=== PATIENT | male | born 1995 | race African-American/Black ===

== ENCOUNTER 2017-03-09 21:09 | Emergency (ER) | payer OTHER ==
[~2017-03-09] VITALS: Ht 182.9 cm; Wt 72.6 kg
[~2017-03-09 21:09] MED LIST: CIPROFLOXACIN500 MG PO; CYCLOBENZAPRINE10 MG PO; METRONIDAZOLE500 MG PO; MOTRIN IB200 MG PO; NAPROXEN500 MG PO; NORCO 5-325 TA1 EACH PO
[2017-03-09] MEDS ORDERED: ZOFRAN ODT4 MG PO (23:04)
== END 2017-03-09 23:18 | disposition home or self-care (01) ==
LOC: ED 21:09
DX: R11.2 Nausea with vomiting, unspecified (principal); J45.909 Unspecified asthma, uncomplicated; Z90.49 Acquired absence of other specified parts of digestive tract; Z90.89 Acquired absence of other organs
CPT/HCPCS: 80053; 81001; 85025; 96361; 96374; 96375; 99283; J2405; J2550; J7030; J7040

== ENCOUNTER 2017-10-22 05:45 | Day surgery (SDC) | payer OTHER ==
[~2017-10-22] VITALS: Ht 182.9 cm; Wt 75.0 kg
[~2017-10-22 05:45] MED LIST changes: +ULTRAM50 MG PO; +ZOFRAN ODT4 MG PO
[2017-10-22] MEDS ORDERED: NORCO 7.5-3251 EACH PO (09:56)
--- NOTE | 2017-10-31 07:09 | OR ---
[facility] [address], [place] [address] Signed DATE OF OPERATION: 10/22/2017 SURGEON: Patrick Calvillo MD PREOPERATIVE DIAGNOSIS: Acute ulnar collateral ligament rupture, right elbow, with flexor origin rupture, right elbow. POSTOPERATIVE DIAGNOSIS: Acute ulnar collateral ligament rupture, right elbow, with flexor origin rupture, right elbow. PROCEDURE: Repair of ulnar collateral ligament, right elbow. Repair of flexor origin, right elbow. ANESTHESIA: General. SPECIMENS AND COMPLICATIONS: There were no specimens or complications. TOURNIQUET TIME: About 50 minutes. WHAT WAS DONE: The patient was taken to the operating room. After anesthesia was induced and airway secured, the patient was positioned, prepped and draped in the routine sterile fashion. A curvilinear posteromedial incision was made just behind the medial epicondyle. Skin was divided sharply. Subcutaneous tissue was bluntly spread. The ulnar nerve was identified in the cubital tunnel and gently released. We did pass a small vessel loop around it and then were able to gently mobilized the ulnar nerve proximally and distally until it could be retracted out of the way. We then elevated what was left of a rather shredded origin of the ulnar collateral ligament and scarified the underlying bone. A single 3.0 suture anchor was then drilled into the UCL insertion site and used to repair the UCL back to bone. We then used a 15-blade and a small rongeur to scarify the medial epicondylar area and again placed another 3.0 mm suture tack and again used the suture to reattached the common flexor origin. We then reinforced this with interrupted peripheral sutures of 2-0 FiberWire. We then replaced the ulnar nerve in the cubital tunnel and irrigated the wound. Routine wound closure was accomplished and a sterile dressing Electronically Signed By: PATRICK CALVILLO MD 10/31/17 0709 PATIENT NAME: KYLE ASTORGA OPERATIVE REPORT DATE OF : 89 REPORT #: [id number] PHYSICIAN: PATRICK CALVILLO MD PCP: OLIVER ESCALANTE DO REPORT IS CONFIDENTIAL AND NOT TO BE RELEASED WITHOUT AUTHORIZATION [facility] [address] [place] [id number] Signed applied. The patient was placed in a splint, awakened, taken to the recovery room and arrived in stable condition. Counts were correct and antibiotic protocols were followed. Patrick Calvillo MD WFB/MODL /[id number] Electronically Signed By: PATRICK CALVILLO MD 10/31/17 0709 PATIENT NAME: KYLE ASTORGA ELINOR OPERATIVE REPORT DATE OF : [birth year] REPORT #: [id number] PHYSICIAN: PATRICK CALVILLO MD PCP: OLIVER ESCALANTE DO REPORT IS CONFIDENTIAL AND NOT TO BE RELEASED WITHOUT AUTHORIZATION
== END 2017-10-22 11:30 | disposition home or self-care (01) ==
LOC: OPS 05:45 → DS 05:45 → OPS 06:45
PROVIDERS: Orthopaedic Surgery
PROC: 0LQ30ZZ Repair Right Upper Arm Tendon, Open Approach (ICD-10-PCS; 2017-10-22)
PROC: 0MQ30ZZ Repair Right Elbow Bursa and Ligament, Open Approach (ICD-10-PCS; principal; 2017-10-22 06:45)
DX: S53.441A Ulnar collateral ligament sprain of right elbow, initial encounter (principal); S56.211A Strain of other flexor muscle, fascia and tendon at forearm level, right arm, initial encounter; J45.909 Unspecified asthma, uncomplicated; F17.200 Nicotine dependence, unspecified, uncomplicated
CPT/HCPCS: 01810; 64415; 64417; 76942; C1713; J0690; J1100; J2250; J2405; J2704; J2765; J2795; J3010; J7120

== ENCOUNTER 2018-01-24 20:54 | Emergency (ER) | payer OTHER ==
[~2018-01-24] VITALS: Ht 182.9 cm; Wt 75.0 kg
[~2018-01-24 20:54] MED LIST changes: +NORCO 7.5-3251 EACH PO
[2018-01-24] MEDS ORDERED: KETOROLAC TROME10 MG PO (21:44)
== END 2018-01-24 22:09 | disposition home or self-care (01) ==
LOC: ED 20:54
DX: S83.91XA Sprain of unspecified site of right knee, initial encounter (principal); J45.909 Unspecified asthma, uncomplicated; X58.XXXA Exposure to other specified factors, initial encounter; Y92.89 Other specified places as the place of occurrence of the external cause
CPT/HCPCS: 73560; 99283

== ENCOUNTER 2019-08-19 16:40 | Emergency (ER) | payer OTHER ==
[~2019-08-19] VITALS: Ht 182.9 cm; Wt 72.7 kg
--- OUTSIDE RECORDS SUMMARY | ~2019-08-19 | XMS | Encounter Summary ---
Demographics + + + | Address | [address] | | | [place] [address] | + + + | Home Phone | | + + + | Preferred Language | Unknown | + + + | Marital Status | Single | + + + | Pentecostal Affiliation | 1041 | + + + | Race | Unknown | + + + | Ethnic Group | Unknown | + + + Author + + + | Author | [facility] | | | and [place] | + + + | Organization | [facility] | | | and [place] | + + + | Address | Unknown | + + + | Phone | Unavailable | + + + Support + + +---------+ + | Name | Relationship | Address | Phone | + + +---------+ + | Ginette Betancur | ECON | Unknown | | + + +---------+ + | Kathya Wayneyston | ECON | Unknown | | + + +---------+ + Care Team Providers + +------+ + | Care Maritime Engineer Name | Role | Phone | + +------+ + | Samuel Ghosh DO | PCP | | + +------+ + Reason for Visit + + + | Reason | Comments | + + + | Knee Pain | | + + + Encounter Details +--------+ + + + + | Date | Type | Department | Care Team | Description | +--------+ + + + + | 01/30/ | Emergency | [facility] | Naga Redmond, | Acute lateral | | 2018 | | [facility] | MD [address] | meniscus tear of | | | | CENTER [address] | [place] | right knee, initial | | | | [place] | [address] | encounter (Primary | | | | [phone] | | Dx) | | | | [phone] | | | +--------+ + + + + Social History + +-------+ +--------+------+ | Tobacco Use | Types | Packs/Day | Years | Date | | | | | Used | | + +-------+ +--------+------+ | Never Assessed | | | | | + +-------+ +--------+------+ + + + | Sex Assigned at | Date Recorded | | | | + + + | Not on file | | + + + + + + + | Job Start Date | Occupation | Industry | + + + + | Not on file | Not on file | Not on file | + + + + + + + + | Travel History | Travel Start | Travel End | + + + + + + | No recent travel history available. | + + documented as of this encounter Last Filed Vital Signs + + + + + | Vital Sign | Reading | Time Taken | Comments | + + + + + | Blood Pressure | 134/84 | 01/30/2018 1:38 AM | | | | | PDT | | + + + + + | Pulse | 86 | 01/30/2018 1:38 AM | | | | | PDT | | + + + + + | Temperature | 37.2 C (99 F) | 01/29/2018 10:43 PM | | | | | PDT | | + + + + + | Respiratory Rate | 14 | 01/30/2018 1:38 AM | | | | | PDT | | + + + + + | Oxygen Saturation | 97% | 01/30/2018 1:38 AM | | | | | PDT | | + + + + + | Inhaled Oxygen | - | - | | | Concentration | | | | + + + + + | Weight | 72.6 kg (160 lb) | 01/29/2018 10:43 PM | | | | | PDT | | + + + + + | Height | - | - | | + + + + + | Body Mass Index | - | - | | + + + + + documented in this encounter Discharge Instructions Instructions Naga Redmond MD - 01/30/2018Take medication as needed for pain Use crutches and immobilizer at all times except changing close or bathing Return if new concerning symptoms AttachmentsThe following attachments cannot be sent through Care Everywhere.Meniscal Tears, Understanding (Wolof)documented in this encounter Plan of Treatment Not on filedocumented as of this encounter Procedures + +--------+ + + + | Procedure Name | Priori | Date/Time | Associated Diagnosis | Comments | | | ty | | | | + +--------+ + + + | XR KNEE RIGHT 1 - 2 | Routin | 01/30/2018 | | Results for this | | VW | e | 1:37 AM | | procedure are in the | | | | PDT | | results section. | + +--------+ + + + documented in this encounter Results XR Knee Right 1 - 2 Vw (01/30/2018 1:37 AM PDT) + + | Specimen | + + | | + + + + + | Narrative | Performed At | + + + | TWO VIEWS RIGHT KNEE 01/30/2018 1:37 AM CLINICAL HISTORY: Locked | [facility] | | in, pain COMPARISON: None available FINDINGS: The bones are | | | well-mineralized and well aligned. No fracture or subluxation is | | | visible. Joint compartments appear maintained. No conclusive knee | | | effusion or other soft tissue abnormality is visible. IMPRESSION | | | - 1. UNREMARKABLE RADIOGRAPHIC APPEARANCE OF THE RIGHT KNEE. | | | Dictated and Signed by: Da Mckeon MD Electronically signed: | | | 01/30/2018 7:49 AM | | + + + + + | Procedure Note | + + | Fredy Craft Results In - 01/30/2018 7:52 AM PDT TWO VIEWS RIGHT KNEE 01/30/2018 1:37 AM | | | | CLINICAL HISTORY: Locked in, pain | | | | COMPARISON: None available | | | | FINDINGS: The bones are well-mineralized and well aligned. No fracture or | | subluxation is visible. Joint compartments appear maintained. No conclusive | | knee effusion or other soft tissue abnormality is visible. | | | | IMPRESSION - | | 1. UNREMARKABLE RADIOGRAPHIC APPEARANCE OF THE RIGHT KNEE. | | | | Dictated and Signed by: Da Mckeon MD | | Electronically signed: 01/30/2018 7:49 AM | + + + +---------+ + + | Performing | Address | City/State/Zipcode | Phone Number | | Organization | | | | + +---------+ + + | [facility] | | | | + +---------+ + + documented in this encounter Visit Diagnoses + + | Diagnosis | + + | Acute lateral meniscus tear of right knee, initial encounter - Primary | + + documented in this encounter Administered Medications + + + + +------+------+ | Medication Order | MAR | Action | Dose | Rate | Site | | | Action | Date | | | | + + + + +------+------+ | HYDROcodone-acetaminophen | Dispense | 01/31/20 | 1 tablet | | | | (NORCO) 5-325 mg per tablet (ER | to Home | 18 1:37 | | | | | Prepack) 1-2 tablet 1-2 tablet, | | AM PDT | | | | | Oral, SEE ADMIN INSTRUCTIONS, | | | | | | | Starting [facility] 01/30/18 at 0136, | | | | | | | Take 1-2 tablet(s) by mouth every | | | | | | | 4-6 hour(s) as needed for pain, | | | | | | | , | | | | | | + + + + +------+------+ +---+---+ | | | +---+---+ + +-------+ +------+---+---+ | HYDROmorphone (DILAUDID) | Given | 01/30/20 | 1 mg | | | | injection 1 mg 1 mg, | | 18 11:27 | | | | | Intravenous, EVERY 15 MIN PRN, | | PM PDT | | | | | Pain, Starting [facility] 01/30/18 at | | | | | | | 0428, For 3 doses | | | | | | + +-------+ +------+---+---+ +-------+ +------+---+---+ | Given | 01/30/20 | 1 mg | | | | | 18 11:07 | | | | | | PM PDT | | | | +-------+ +------+---+---+ +---+---+ | | | +---+---+ + +-------+ +--------+---+---+ | ketamine 100 mg/mL injection | Given | 01/31/20 | 100 mg | | | | 100 mg 100 mg, Intravenous, | | 18 12:26 | | | | | ONCE, [facility] 01/30/18 at 0435, For 1 | | AM PDT | | | | | dose | | | | | | + +-------+ +--------+---+---+ +---+---+ | | | +---+---+ documented in this encounter"
--- OUTSIDE RECORDS SUMMARY | ~2019-08-19 | XMS | Clinical Summary ---
Demographics + + + | Address | [address] | | | [place] [address] | + + + | Home Phone | | + + + | Preferred Language | Unknown | + + + | Marital Status | Single | + + + | Methodist Affiliation | 1041 | + + + | Race | Unknown | + + + | Ethnic Group | Unknown | + + + Author + + + | Author | [facility] | | | and [place] | + + + | Organization | [facility] | | | and [place] | [...] Team Providers + +------+ + | Care Test Desk Operator Name | Role | Phone | + +------+ + | Samuel Ghosh DO | PCP | | + +------+ + Allergies No Known Allergies Medications No known medications Active Problems Not on file Social History + +-------+ +--------+------+ | Tobacco [...] recent travel history available. | + + Last Filed Vital Signs + + + [...] | | + + + + + Plan of Treatment + + + + + | Health Maintenance | Due Date | Last Done | Comments | + + + + + | Primary Care | | | | | Outreach (Low Risk) | 4 | | | + + + + + | Vaccine: | | | | | Dtap/Tdap/Td (1 - | 3 | | | | Tdap) | | | | + + + + + | Vaccine: Influenza | | | | | (#1) | 9 | | | + + + + + Results Not on filefrom Last 3 Months Insurance + +--------+ +--------+ +---------+--------+ | Payer | Benefi | Subscriber | Effect | Phone | Address | Type | | | t Plan | ID | ann marie | | | | | | / | | Dates | | | | | | Group | | | | | | + +--------+ +--------+ +---------+--------+ | [employer] [facility] | PHP | [id number] | 09/02/19 | [phone] | | PPO | | PLAN | PEBB | | 18-Pre | 5 | | | | | STATEW | | sent | | | | | | GRETCHEN | | | | | | + +--------+ +--------+ +---------+--------+ | GEHA | GEHA | [id number] | 09/02/19 | [phone] | | PPO | | | AETNA | | 18-Pre | 6 | | | | | PPO | | sent | | | | + +--------+ +--------+ +---------+--------+ | HEALTH | IHS | [id number] | 09/02/19 | | | Indemn | | SERVICE | YELLOW | | 18-Pre | | | ity | | | HAWK | | sent | | | | + +--------+ +--------+ +---------+--------+ + +--------+ +--------+ + + | Guarantor Name | Accoun | Relation to | Date | Phone | Billing Address | | | t Type | Patient | of | | | | | | | | | | + +--------+ +--------+ + + | Ham Fermin | Person | Self | [birth year] | [address] | | [place] | al/Fam | | 1994 | [phone] | Place [place] | | | jerry | | | [address] (Home) | [phone] | + +--------+ +--------+ + + Advance Directives + + + + + | Type | Date Recorded | Patient | Explanation | | | | Muck Hauler | | + + + + + | Power of | | | | | Button Maker And Installer | | | | + + + + + | Advance | 01/30/2018 2:22 | | | | Directive | AM | | | + + + + +"
--- OUTSIDE RECORDS SUMMARY | ~2019-08-19 | XMS | Clinical Summary ---
Demographics + + + | Address | [address] | | | [place] [address] | + + + | Home Phone | | + + + | Preferred Language | Unknown | + + + | Marital Status | Single | + + + | Episcopalian Affiliation | 1041 | + + + | Race | Unknown | + + + | Ethnic Group | Unknown | + + + Author + + + | Author | [facility] | | | and [place] | + + + | Organization | [facility] | | | and [place] [...] Team Providers + +------+ + | Care Mobility Manager Name | Role | Phone | + [...] +---------+--------+ | [employer] [facility] | PHP | [id number] | 09/02/19 | [phone] | | PPO | | PLAN | PEBB | | 18-Pre | 5 | | | | | STATEW | | sent | | | | | | GRETCHEN | | | | | | + +--------+ +--------+ +---------+--------+ | GEHA | GEHA | [id number] | 09/02/19 | [phone] | | PPO | | | AETNA | | 18-Pre | 6 | | | | | PPO | | sent | | | | + +--------+ +--------+ +---------+--------+ | HEALTH | IHS | [id number] | 09/02/19 | | | Indemn | [...] jerry | | | 8 (Home) | [phone] | + +--------+ +--------+ + + Advance Directives + + + + + | Type | Date Recorded | Patient | Explanation | | | | Council On Aging Director | | + + + + + | Power of | | | | | Certified Professional Ergonomist | | | | + + + + + | Advance | 01/30/2018 2:22 | | | | Directive | AM | | | + + + + +"
--- OUTSIDE RECORDS SUMMARY | ~2019-08-19 | XMS | Encounter Summary ---
Demographics + + + | Address | [address] | | | [place] [address] | + + + | Home Phone | | + + + | Preferred Language | Unknown | + + + | Marital Status | Single | + + + | Shinto Affiliation | 1041 | + + + | Race | Unknown | + + + | Ethnic Group | Unknown | + + + Author + + + | Author | [facility] | | | and [place] | + + + | Organization | [facility] | | | and [place] [...] Team Providers + +------+ + | Care Medical Esthetician Name | Role | Phone | + [...] + + | 01/30/ | Emergency | [facility] | Naga Redmond, | Acute lateral | | 2018 | | [facility] CTR EM[facility] | MD [address] | meniscus tear of | | | | CENTER [address] | [place] | right knee, initial | | | | [place] | [address] | encounter (Primary | | | | [phone] | | Dx) | | | | [phone] | | | +--------+ + + + [...] be sent through Care Everywhere.Meniscal Tears, Understanding (Italian)documented in this encounter Plan of Treatment Not [...] | | | | | | Starting [facility] 01/30/18 at 0136, | | | | [...] | | | | | Pain, Starting [facility] 01/30/18 at | | | | | [...] 12:26 | | | | | ONCE, [facility] 01/30/18 at 0435, For 1 | | AM PDT | | | | | dose | | | | | | + +-------+ +--------+---+---+ +---+---+ | | | +---+---+ documented in this encounter"
[~2019-08-19 16:40] MED LIST changes: +KETOROLAC TROME10 MG PO; +TRAMADOL HCL50 MG PO
[2019-08-19] MEDS ORDERED: BACTRIM DS TAB1 EACH PO (17:01)
[2019-08-19] MEDS ORDERED: HYDROXYZINE HCL25 MG PO (17:01)
[2019-08-19] MEDS ORDERED: FLUOXETINE HCL10 MG PO (17:01)
== END 2019-08-19 19:03 | disposition home or self-care (01) ==
LOC: ED 16:40
PROC: 0H98XZZ Drainage of Buttock Skin, External Approach (ICD-10-PCS; principal; 2019-08-19)
DX: L02.31 Cutaneous abscess of buttock (principal); Z79.899 Other long term (current) drug therapy
CPT/HCPCS: 10060; 99283-25; J1170

== ENCOUNTER 2021-02-16 19:34 | Emergency (ER) | payer OTHER ==
[~2021-02-16] VITALS: Ht 182.9 cm; Wt 77.2 kg
[~2021-02-16 19:34] MED LIST changes: +BACTRIM DS TAB1 EACH PO; +FLUOXETINE HCL10 MG PO; +HYDROXYZINE HCL25 MG PO
[2021-02-16] MEDS ORDERED: BUSPIRONE HCL5 MG PO (21:00)
== END 2021-02-16 22:58 | disposition home or self-care (01) ==
LOC: ED 19:34
DX: S01.511A Laceration without foreign body of lip, initial encounter (principal); Z23 Encounter for immunization; W50.0XXA Accidental hit or strike by another person, initial encounter; Y93.72 Activity, wrestling; J45.909 Unspecified asthma, uncomplicated; Z79.899 Other long term (current) drug therapy
CPT/HCPCS: 12011; 90471; 90715; 99282-25